=== PATIENT | male | born 1960 | race Hispanic/Latino ===

== ENCOUNTER 2022-04-04 06:44 | Day surgery (SDC) | payer OTHER ==
[2022-04-01 14:04] LABS: Absolute Lymphocytes (CBC) 1.9 K/uL (0.7-4.9); Lymphocytes % 23.1 % (15.3-44.8); MPV 7.8 fL (7.6-11.3); RBC Red Blood Cell Count 4.07 M/uL (4.33-5.43)
[2022-04-01 14:08] LABS: Protime INR 0.92
[2022-04-01 14:14] LABS: Potassium 4.5 mmol/L (3.5-5.1)
--- NOTE | 2022-04-01 14:21 | RAD REPORT ---
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 COMPARISON: CHEST SINGLE VIEW dated 12/12/2008; CHEST PA AND LAT 2 VIEW dated 06/08/2006 FINDINGS: Small calcified granuloma seen right upper lobe. The lungs are otherwise clear. The heart is upper limit of normal in size. No displaced fractures.
--- NOTE | 2022-04-02 06:25 | EKG ---
Test Date: 2022-04-01 Test Time: 13:47:02 [employer]: [facility] MEASUREMENT RESULTS: Intervals: Rate: 68 VA: 162 QRSD: 78 QT: 388 QTc: 412 Drew: P: 30 VA: 162 QRS: 9 T: 18 INTERPRETIVE STATEMENTS: Normal sinus rhythm Moderate voltage criteria for LVH, may be normal variant Borderline ECG Compared to ECG 12/12/2008 21:25:18 Left ventricular hypertrophy now present Electronically Signed On 04-02-22 06:23:54 CDT by Ryan Ramirez
[2022-04-04] MEDS ORDERED: FENTANYL CITR 100 MCG/2 ML ONE (06:51)
[2022-04-04] MEDS ORDERED: HEPA 1000U/500MLS 2,000 UNIT/1,000 ML BAG IV ONE (06:51)
[2022-04-04] MEDS ORDERED: HEPARIN 10,000 UNIT/10 ML VIAL IV ONE (06:52)
[2022-04-04] MEDS ORDERED: HEPARIN 5000 UNIT/ML 1 ML VIAL ONE (06:52)
[2022-04-04] MEDS ORDERED: LIDOCAINE 1% MPF 30 ML VIAL ONE (06:52)
[2022-04-04] MEDS ORDERED: VERAPAMIL HCL 10 MG/4 ML VIAL IV ONE (06:52)
[2022-04-04] MEDS ORDERED: MIDAZOLAM HCL 2 MG/2 ML INJ ONE (06:52)
[2022-04-04] MEDS ORDERED: ATROPINE SULF 1 MG/10 ML SYR IV ONE (06:52)
[2022-04-04] MEDS ORDERED: NA CHLORIDE 0.9% 500 ML ONE ×2 (06:58→09:50)
[2022-04-04] MEDS ORDERED: CLOPIDOGREL 75 MG TABLET ONE ×2 (07:53→07:56)
[2022-04-04 10:33] VITALS: O2SAT 97
[2022-04-04 10:57] VITALS: BP 150/68
--- NOTE | 2022-04-05 01:59 | OP ---
Date of Procedure: 04/04/2022 Surgeon: CAM FORMAN Procedures Performed: 1.Selective coronary angiogram. 2.Left heart catheterization. 3.Percutaneous coronary intervention of severe diagonal 1 branch, used 2.75 x 20 mm Synergy drug-elu ting stent. 4.Percutaneous coronary intervention of severe OM 1 branch, used 2.25 x 16 mm Synergy drug-eluting s tent. Access: Right radial artery 6-Kenyan, closed with TR band. Indication: Unstable angina. Complications: None. Bleeding: Less than 20 mL. Total Sedation Time: 50 minutes, used fentanyl and Versed. Description Of Procedure: After risks, benefits, and alternatives were explained, the patient agreed to the procedure and signed informed consent. The patient was brought into cardiac catheterization laboratory, prepped and draped in usual sterile fashion, given fentanyl and Versed in incremental dos es to achieve adequate amount of sedation, and then I accessed the right radial artery using [employer] micropuncture kit and placed a 6-Kenyan slender sheath and took a 5-[place] Hall 4.0 catheter into the aortic root, engaged left main and then right coronary artery, took standard views. Catheter was advanced over the wire into the LV. LVEDP was measured. Pullback going back did not record any gra dient. Then, we gave systemic heparin to assure ACT level above 250. We gave 600 mg of Plavix. The patient already took aspirin in the morning and then took EBU 3.5 guide into the aortic root, engage d left main, and then took short Runthrough wire into the left main, then the LAD, and then diagonal 1 branch. Lesion was pre-dilated and then placed a 2.75 x 20 mm Synergy drug-eluting stent with good results. Then, the wire was retrieved back into the left main and then advanced into the left circu mflex into the OM1 branch, and the proximal OM was 99% occluded, responded well to re-dilation and th en placed a 2.25 x 16 mm Synergy drug-eluting stent with good results. Final angiogram was satisfact ory and then I removed the wire, guide, and the sheath, placed TR band with good hemostasis. Findings: 1.Left main: Large and normal. 2.LAD: Large vessel, normal until the distal portion of it. There is a focal 40% stenosis. Diagon al 1 branch has a 90% stenosis proximally, status post successful PCI as above. 3.Left circumflex is a moderate-sized vessel. It is normal except the OM1 branch has 99% stenosis i n the proximal segment, status post successful PCI as above. 4.RCA is large and dominant, proximal 40% stenosis. Mid to distal appears to be normal, and then th e right PDA has diffuse 40% stenosis. 5.LVEDP normal at 10 mmHg. Conclusion: 1.Severe OM1/D1 disease as outlined above, status post successful PCI to both arteries. 2.Moderate coronary artery disease elsewhere. 3.Normal LVEDP. Plan: Continue aspirin, Plavix, and add 40 of Lipitor q.h.s., and to follow up with me in the office in 1 week. /IGNACIO Voice ID: [id number] Report ID: [id number]
== END 2022-04-04 11:08 | disposition home or self-care (01) ==
LOC: CCL 06:44
PROVIDERS: ATTEND Internal Medicine
DX: I25.110 Atherosclerotic heart disease of native coronary artery with unstable angina pectoris (principal); I10 Essential (primary) hypertension; E11.9 Type 2 diabetes mellitus without complications; E78.5 Hyperlipidemia, unspecified; Z79.899 Other long term (current) drug therapy; Z79.84 Long term (current) use of oral hypoglycemic drugs
CPT/HCPCS: 36415; 71046; 80048; 82947; 85025; 85347; 85610; 85730; 92928; 92929; 93005; 93458; C1725; C1893; C9600; J1644; J2250; J3010; J7040; Q9967